=== PATIENT | female | born 1930 | race Hispanic/Latino ===

== ENCOUNTER 2019-11-07 15:09 | Emergency (ER) | payer SELFPAY ==
[~2019-11-07] VITALS: Ht 147.3 cm; Wt 41.9 kg
--- NOTE | 2019-11-07 16:59 | Diagnostic Imaging Report ---
CT [facility] HISTORY: Trauma COMPARISON: None. Technique: Noncontrast axial scans were obtained from skull base to the vertex. Coronal and sagittal reconstructions obtained from the axial data. One or more of the following dose reduction techniques were used: Automated exposure control, adjustment of the mA and/or kV according to patient size, and/or utilization of iterative reconstruction technique. DISCUSSION: Scalp/Skull: Unremarkable. Brain sulci: Mildly prominent. Ventricles: Compensatory dilatation. Extra-axial spaces: Acute to subacute left hemispheric subdural hematoma measures up to 0.9 cm in thickness. Associated, predominantly chronic right frontoparietal subdural hematoma measures up to 0.7 cm in thickness. Associated small amounts of acute subdural hemorrhage are seen along the left frontal pole, posterior falx, bilateral tentorium, and right perirolandic region. Mass effect is local without significant brain herniation. No additional masses or fluid collections. Carotid siphon calcifications are present. Parenchyma: Mild bilateral deep white matter hypodensity is likely chronic microvascular ischemic change. Old lacunar infarcts are seen in the bilateral thalami and right subinsular region. Otherwise, no masses, hemorrhage, or large vascular territory acute infarct. Dural sinuses: No abnormal densities. Sellar/Suprasellar region: Intact. Skull base: Intact. Incidental findings: None. IMPRESSION: 1. Acute to subacute left hemispheric subdural hematoma and predominantly chronic right frontoparietal subdural hematoma. Small amounts of acute subdural hemorrhage are also seen along the posterior falx, bilateral tentorium, and right perirolandic region. Mass effect is local without significant brain herniation. 2. No other acute intracranial abnormalities. 3. Mild supratentorial chronic microvascular ischemic change. 4. 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 5. Mild generalized cerebral volume loss. Findings discussed with Dr. Angel at 4:54 PM on 11/07/2019 (by Dr. Meehan). Signed by: Dr. Ha Meehan M.D. on 11/07/2019 4:56 PM
[2019-11-07] MEDS ORDERED: SODIUM CHLORIDE FLUSH 10 ML SYR INJ PRN (17:00)
--- NOTE | 2019-11-07 17:10 | NUR ---
family brought to room [address] Angel, in reference to POC.
--- NOTE | 2019-11-07 17:22 | Diagnostic Imaging Report ---
CT C-SPINE W/O - [facility] HISTORY: Trauma COMPARISON: Concurrent head CT TECHNIQUE: CT of the cervical spine without contrast. Sagittal and coronal reformations were created. One or more of the following dose reduction techniques were used: Automated exposure control, adjustment of the mA and/or kV according to patient size, and/or utilization of iterative reconstruction technique. FINDINGS: Cervical lordosis is straightened. There is no significant scoliosis. No fractures, compression deformity, or destructive osseous lesions are seen. The craniocervical junction is intact. No gross spinal canal masses are seen. The paravertebral and paraspinal soft tissues are unremarkable. Moderate multilevel spondylotic changes are present. There is at least mild canal stenosis from C4-C5 to C6-C7. Multilevel prominent bilateral facet arthrosis is associated with grade 1 anterolisthesis of C4 on C5, C7 on T1, and T1 on T2. Advanced atlantoaxial arthrosis is present as well. There is scarring in the lung apices. Mild to moderate bilateral carotid bulb calcified plaque is present. Small coarse calcification is seen in the right thyroid lobe. IMPRESSION: No acute osseous abnormalities. Degenerative changes as described above. Signed by: Dr. Ha Meehan M.D. on 11/07/2019 5:18 PM
--- NOTE | 2019-11-07 17:39 | NUR ---
[facility] notified of need for transfer to [facility]
--- NOTE | 2019-11-07 17:41 | NUR ---
[facility] ETA 45 minutes
--- NOTE | 2019-11-07 17:42 | NUR ---
pt assisted to bathroom via WC.
== END 2019-11-07 18:49 | disposition other institution (70) ==
LOC: FSED 15:09
DX: S06.5X0A Traumatic subdural hemorrhage without loss of consciousness, initial encounter (principal); S00.83XA Contusion of other part of head, initial encounter; M54.2 Cervicalgia; W01.0XXA Fall on same level from slipping, tripping and stumbling without subsequent striking against object, initial encounter; Y93.01 Activity, walking, marching and hiking; Y92.008 Other place in unspecified non-institutional (private) residence as the place of occurrence of the external cause; D64.9 Anemia, unspecified; D68.32 Hemorrhagic disorder due to extrinsic circulating anticoagulants; T45.525A Adverse effect of antithrombotic drugs, initial encounter
CPT/HCPCS: 70450; 72125; 99284